=== PATIENT | female | born 1965 | race Caucasian/White ===

== ENCOUNTER 2022-03-26 19:36 | Emergency (ER) | payer OTHER ==
[~2022-03-26] VITALS: Ht 165.1 cm; Wt 65.8 kg
[2022-03-26 19:48] VITALS: BP_SYST 184
--- NOTE | 2022-03-26 19:59 | NUR ---
56 YR OLD SAMI SPEAKING FEMALE WITH COMPLAINT OF ABDOMINAL PAIN 8/10, WITH DYSPNEA AND WHEEZING. PT DENIES ANY NAUSE OR VOMITING, OR DIARRHEA. PT REPORTS TAKING A PAIN MEDICATION EARLIER WITH NO RELIEF. PT PLACED ON AQUEDUCT AND RESERVOIR KEEPER IN GOWN, BED 3. PT ACCOMPANIED BY FRIEND. REPORT GIVEN TO FRANCINE LUND. PENDING MD TRAN
--- NOTE | 2022-03-26 20:06 | NUR ---
PT PRESENTED TO THE ER DRIVEN BY HER ROOM MATE WITH COMPLAINT OF UPPER ABDOMINAL PAIN. STATED PAIN STARTED OF 4P. 06/01 DENIES ANY VOMITING OR NAUSEA. PT DOES HAVE AUDIBLE WHEEZING ON INHALE HAS HX OF ASTHMA. PB READING PROVIDED TO DR BECK. PT IN BED WITH BED LOWERED AND LOCKED AND RAILS UP
[2022-03-26] MEDS ORDERED: methylPREDNISolone SOD SUCC/PF 62.5 MG/ML VIAL IVP ONE (20:15)
[2022-03-26] MEDS ORDERED: fentaNYL CITRATE/PF 100 MCG/2 ML AMP IVP ONE (20:15)
[2022-03-26] MEDS ORDERED: IPRATROPIUM/ALBUTEROL SULFATE 3 ML AMPUL.NEB (DUONEB) INH ONE (20:15)
--- NOTE | 2022-03-26 20:16 | NUR ---
SUMITTED ORDERS FOR PT
[2022-03-26] MEDS ORDERED: cloNIDine HCL 0.1 MG TABLET PO ONE ×2 (21:00)
[2022-03-26 21:21] LABS: BASOPHILS # (AUTO) 0.1 K/uL (0.0-0.2); BASOPHILS % (AUTO) 0.9 % (0.0-2.0); EOSINOPHILS # (AUTO) 0.3 K/uL (0.0-0.4); EOSINOPHILS % (AUTO) 3.9 % (0.0-4.0); HEMATOCRIT 35.1 % (36-48); HEMOGLOBIN 11.3 g/dL (12.0-16.0); LYMPHOCYTES # (AUTO) 2.6 K/uL (1.0-5.5); LYMPHOCYTES % (AUTO) 39.5 % (20.5-51.5); MEAN CORPUSCULAR HEMOGLOBIN 24 pg (27-31); MEAN CORPUSCULAR HGB CONC 32 % (32-36); MEAN CORPUSCULAR VOLUME 73 fL (79.0-98.0); MONOCYTES # (AUTO) 0.5 K/uL (0.0-1.0); MONOCYTES % (AUTO) 7.3 % (1.7-9.3); NEUTROPHILS # (AUTO) 3.2 K/uL (1.8-7.7); NEUTROPHILS % (AUTO) 48.4 % (40.0-70.0); PLATELET COUNT (AUTO) 392 K/uL (130-430); RED BLOOD CELL COUNT(AUTO) 4.81 MIL/uL (4.2-6.2); RED CELL DISTRIBUTION WIDTH 15.9 % (9.0-15.0); WHITE BLOOD COUNT (AUTO) 6.6 K/uL (4.8-10.8)
[2022-03-26 21:44] LABS: BILIRUBIN,URINE NEGATIVE (NEGATIVE); BLOOD, URINE NEGATIVE (NEGATIVE); COLOR,URINE YELLOW (YELLOW); GLUCOSE,URINE NEGATIVE (NEGATIVE); KETONES,URINE NEGATIVE (NEGATIVE); LEUKOCYTE ESTERASE ,URINE 1+ (NEGATIVE); NITRITE, URINE NEGATIVE (NEGATIVE); PROTEIN URINE NEGATIVE (NEGATIVE); UROBILINOGEN,URINE 0.2 (0.2-1.0)
[2022-03-26 21:45] LABS: CLARITY/URINE HAZY (CLEAR)
[2022-03-26 21:53] LABS: ANION GAP 11 (5-15); CHLORIDE 103 mmol/L (98-107); CREATININE 0.92 mg/dL (0.55-1.30); GLUCOSE 86 mg/dL (70-99); SODIUM SERUM 139 mmol/L (136-145); UREA NITROGEN, BLOOD 17 mg/dL (8-21)
[2022-03-26 21:55] LABS: GFR AFRICAN AMERICAN 81 mL/min (>90)
[2022-03-26 22:02] LABS: ALANINE AMINOTRANSFERASE 20 U/L (12-78); ALBUMIN 3.3 g/dL (3.4-4.8); ASPARTATE AMINOTRANSFERASE 14 U/L (10-37); LIPASE 198 U/L (73-393); TOTAL BILIRUBIN 0.1 mg/dL (0.0-1.0)
[2022-03-26 23:17] LABS: BACTERIA,URINE MODERATE /HPF (None Seen); MUCUS,URINE 1+ /LPF (None Seen); RBC,URINE 0-3 /HPF (0-3)
[2022-03-27] MEDS ORDERED: PRED20TA PO (00:39)
[2022-03-27] MEDS ORDERED: FAMO-132 PO (00:39)
[2022-03-27] MEDS ORDERED: NITR-85 PO (00:39)
--- NOTE | 2022-03-27 00:52 | NUR ---
Patient given written and verbal discharge instructions and verbalizes understanding. ER DR VINAY WHITT discussed with patient the results and treatment provided. Patient in stable condition. ID arm band removed. IV catheter removed intact and dressing applied, no active bleeding. Rx of PREDNISONE, MACROBID, PEPCID given. Patient educated on pain management and to follow up with PMD. Pain Scale . Opportunity for questions provided and answered. Medication side effect fact sheet provided.
[2022-03-27 00:55] VITALS: BP_SYST 126
== END 2022-03-27 01:11 | disposition home or self-care (01) ==
LOC: SED 19:36
DX: J45.901 Unspecified asthma with (acute) exacerbation (principal); I10 Essential (primary) hypertension; R10.13 Epigastric pain
CPT/HCPCS: 36415; 71045; 76700; 80053; 81000; 83690; 84484; 85025; 87086; 93005; 94640; 96374; 96375; 99285; J2930; J3010

== ENCOUNTER 2022-08-27 21:10 | Emergency (ER) | payer MEDICAID, OTHER ==
[~2022-08-27] VITALS: Ht 165.1 cm; Wt 65.8 kg
[~2022-08-27 21:10] MED LIST: FAMO-132 PO; NITR-85 PO; PRED20TA PO
[2022-08-27 21:27] VITALS: BP_SYST 165
--- NOTE | 2022-08-27 21:31 | NUR ---
Pt bib ALS from board and halfway. CC HTN with general weakness. blurred vision Veronica noted no neuro deficets denies headache denies NV. Pt notes 208/100 at 1300 today. BP is currently 165/105. Pt states general weakness.
--- NOTE | 2022-08-27 21:32 | NUR ---
PT LUNG SOUNDS WHEEZING TIGHTNESS TO THE CHEST.
--- NOTE | 2022-08-27 22:11 | NUR ---
Pt sob, tightness in chest, dyspnea 97% oxygen RT, MD notified.
[2022-08-27] MEDS ORDERED: IPRATROPIUM/ALBUTEROL SULFATE 3 ML AMPUL.NEB (DUONEB) INH ONE ×2 (22:30→23:30)
[2022-08-27] MEDS ORDERED: PROCHLORPERAZINE EDISYLATE 10 MG/2 ML VIAL IVP ONE (22:30)
[2022-08-27] MEDS ORDERED: fentaNYL CITRATE/PF 100 MCG/2 ML AMP IVP ONE (22:30)
[2022-08-27] MEDS ORDERED: MAGNESIUM SULFATE 50 ML IV ONE (22:45)
[2022-08-27 22:56] LABS: BASOPHILS % (AUTO) 0.4 % (0.0-2.0); EOSINOPHILS # (AUTO) 0.3 K/uL (0.0-0.4); EOSINOPHILS % (AUTO) 5.3 % (0.0-4.0); HEMATOCRIT 38.7 % (36-48); HEMOGLOBIN 12.5 g/dL (12.0-16.0); LYMPHOCYTES # (AUTO) 2.1 K/uL (1.0-5.5); LYMPHOCYTES % (AUTO) 32.8 % (20.5-51.5); MEAN CORPUSCULAR HEMOGLOBIN 24 pg (27-31); MEAN CORPUSCULAR HGB CONC 32 % (32-36); MEAN CORPUSCULAR VOLUME 74 fL (79.0-98.0); MONOCYTES # (AUTO) 0.5 K/uL (0.0-1.0); MONOCYTES % (AUTO) 7.2 % (1.7-9.3); NEUTROPHILS # (AUTO) 3.4 K/uL (1.8-7.7); NEUTROPHILS % (AUTO) 54.3 % (40.0-70.0); PLATELET COUNT (AUTO) 316 K/uL (130-430); RED BLOOD CELL COUNT(AUTO) 5.24 MIL/uL (4.2-6.2); RED CELL DISTRIBUTION WIDTH 14.4 % (9.0-15.0); WHITE BLOOD COUNT (AUTO) 6.3 K/uL (4.8-10.8)
[2022-08-27 23:01] LABS: BILIRUBIN,URINE NEGATIVE (NEGATIVE); BLOOD, URINE NEGATIVE (NEGATIVE); CLARITY/URINE CLEAR (CLEAR); COLOR,URINE YELLOW (YELLOW); GLUCOSE,URINE NEGATIVE (NEGATIVE); KETONES,URINE NEGATIVE (NEGATIVE); LEUKOCYTE ESTERASE ,URINE 3+ (NEGATIVE); NITRITE, URINE NEGATIVE (NEGATIVE); PH,URINE 6.5 (5.0-8.0); PROTEIN URINE NEGATIVE (NEGATIVE); UROBILINOGEN,URINE 0.2 (0.2-1.0)
[2022-08-27] MEDS ORDERED: DEXAMETHASONE SOD PHOSPHATE 10 MG/ML VIAL IVP ONE (23:15)
[2022-08-27 23:16] LABS: ANION GAP 6 (5-15); CALCIUM 8.6 mg/dL (8.4-11.0); CHLORIDE 101 mmol/L (98-107); CREATININE 0.72 mg/dL (0.55-1.30); GLUCOSE 114 mg/dL (70-99); UREA NITROGEN, BLOOD 13 mg/dL (8-21)
[2022-08-27 23:21] LABS: BACTERIA,URINE FEW /HPF (None Seen)
[2022-08-27 23:22] LABS: MUCUS,URINE 1+ /LPF (None Seen)
[2022-08-27 23:23] LABS: ALANINE AMINOTRANSFERASE 31 U/L (12-78); ALBUMIN 3.7 g/dL (3.4-4.8); ASPARTATE AMINOTRANSFERASE 20 U/L (10-37); TOTAL BILIRUBIN 0.3 mg/dL (0.0-1.0)
--- NOTE | 2022-08-27 23:24 | NUR ---
PT WORKING TO BREATH ACCESSORY MUSCLES MODERATE RESP DISTRESS NOTIFIED MD. RT AT BEDSIDE./
[2022-08-27] MEDS ORDERED: IPRATROPIUM/ALBUTEROL SULFATE 3 ML AMPUL.NEB (DUONEB) ONE (23:31)
[2022-08-27 23:33] LABS: GFR AFRICAN AMERICAN 107 mL/min (>90)
--- NOTE | 2022-08-28 | NUR ---
ER at bedside examining patient.
[2022-08-28] MEDS ORDERED: hydrALAZINE HCL 20 MG/ML VIAL IVP ONE (00:45)
[2022-08-28] MEDS ORDERED: ALBMDI INH (01:16)
[2022-08-28] MEDS ORDERED: PRED20TA PO (01:16)
[2022-08-28 01:25] VITALS: BP_SYST 138
--- NOTE | 2022-08-28 01:26 | NUR ---
Patient given written and verbal discharge instructions and verbalizes understanding. ER MD discussed with patient the results and treatment provided. Patient in stable condition. ID arm band removed. IV catheter removed intact and dressing applied, no active bleeding. Rx of albuterol, prednisone given. Patient educated on pain management and to follow up with PMD. Pain Scale . Opportunity for questions provided and answered. Medication side effect fact sheet provided.
== END 2022-08-28 01:25 | disposition home or self-care (01) ==
LOC: SED 21:10
DX: J44.1 Chronic obstructive pulmonary disease with (acute) exacerbation (principal); I10 Essential (primary) hypertension; R42 Dizziness and giddiness; R06.02 Shortness of breath; F17.200 Nicotine dependence, unspecified, uncomplicated; Z79.899 Other long term (current) drug therapy
CPT/HCPCS: 99291; 96365; 96375 ×2; 80053; 81000; 83880; 85025; 87086; 84484; 36415; 71045; 94640; 94664; J1100; J3475; J0780; J3010; J0360

== ENCOUNTER 2022-08-28 16:04 | Inpatient (IN) | payer MEDICAID ==
[~2022-08-28] VITALS: Ht 165.1 cm; Wt 71.4 kg
[~2022-08-28 16:04] MED LIST changes: +ALBMDI INH
[2022-08-28 16:21] VITALS: BP_SYST 173
[2022-08-28] MEDS ORDERED: LISINOPRIL 10 MG TABLET (PRINIVIL) PO ONE (17:00)
[2022-08-28 17:25] LABS: BASOPHILS % (AUTO) 0.1 % (0.0-2.0); EOSINOPHILS % (AUTO) 0.1 % (0.0-4.0); HEMOGLOBIN 12.2 g/dL (12.0-16.0); LYMPHOCYTES % (AUTO) 14.2 % (20.5-51.5); MEAN CORPUSCULAR HEMOGLOBIN 24 pg (27-31); MEAN CORPUSCULAR HGB CONC 33 % (32-36); MEAN CORPUSCULAR VOLUME 73 fL (79.0-98.0); MONOCYTES # (AUTO) 0.5 K/uL (0.0-1.0); MONOCYTES % (AUTO) 7.4 % (1.7-9.3); NEUTROPHILS # (AUTO) 5.4 K/uL (1.8-7.7); NEUTROPHILS % (AUTO) 78.2 % (40.0-70.0); PLATELET COUNT (AUTO) 355 K/uL (130-430); RED BLOOD CELL COUNT(AUTO) 5.04 MIL/uL (4.2-6.2); WHITE BLOOD COUNT (AUTO) 6.9 K/uL (4.8-10.8)
[2022-08-28 17:26] LABS: CALCIUM 9.6 mg/dL (8.4-11.0); CREATININE 0.88 mg/dL (0.55-1.30)
[2022-08-28 17:35] LABS: ALBUMIN 3.7 g/dL (3.4-4.8); TOTAL BILIRUBIN 0.2 mg/dL (0.0-1.0)
[2022-08-28] MEDS ORDERED: NACL 0.9% 1,000 ML IV ONE (17:45)
[2022-08-28] MEDS ORDERED: MORPHINE 4 MG INJ. 4 MG/ML VIAL IVP PRN (17:45)
[2022-08-28] MEDS ORDERED: hydrALAZINE HCL 20 MG/ML VIAL IVP ONE (18:15)
[2022-08-28] MEDS ORDERED: hydrALAZINE HCL 20 MG/ML VIAL ONE (20:34)
[2022-08-28] MEDS ORDERED: prednisoLONE 15 MG/5 ML UDC PO ONE (21:00)
[2022-08-28] MEDS ORDERED: IPRATROPIUM/ALBUTEROL SULFATE 3 ML AMPUL.NEB (DUONEB) INH ONE (21:15)
[2022-08-28] MEDS ORDERED: MORPHINE 4 MG INJ. 4 MG/ML VIAL IVP ONE (23:30)
[2022-08-29] VITALS (9 sets, daily range): BP systolic 125–200
[2022-08-29] MEDS: TEMAZEPAM 7.5 MG CAPSULE PO PRN ×2 (02:30→20:00)
[2022-08-29] MEDS ORDERED: ONDANSETRON HCL 4 MG/2 ML VIAL IVP PRN (06:45)
[2022-08-29] MEDS ORDERED: ALBUTEROL MDI INHALATION 8 GM INH INH PRN (07:00)
[2022-08-29] MEDS: IPRATROPIUM/ALBUTEROL SULFATE 3 ML AMPUL.NEB (DUONEB) INH PRN ×2 (07:17→23:36)
[2022-08-29] MEDS ORDERED: ALBUTEROL SULFATE 0.083% 2.5 MG/3 ML VIAL.NEB INH PRN (07:30)
[2022-08-29] MEDS: NITROFURANTOIN MONOHYD/M-CRYST 100 MG CAPSULE (MacroBID) PO SCH ×2 (09:57→20:00)
[2022-08-29] MEDS: predniSONE 20 MG TABLET PO SCH (09:57)
[2022-08-29] MEDS: FAMOTIDINE 20 MG TABLET PO SCH ×2 (09:57→20:00)
[2022-08-29] MEDS: ACETAMINOPHEN 325 MG TABLET PO PRN ×2 (09:58→16:41)
[2022-08-29] MEDS ORDERED: lisinopriL 20 MG TABLET PO ONE (16:45)
[2022-08-29] MEDS: hydrALAZINE HCL 20 MG/ML VIAL IVP PRN ×2 (19:05→23:57)
[2022-08-30] MEDS: NITROFURANTOIN MONOHYD/M-CRYST 100 MG CAPSULE (MacroBID) PO SCH (08:25)
[2022-08-30] MEDS: FAMOTIDINE 20 MG TABLET PO SCH (08:25)
[2022-08-30] MEDS: predniSONE 20 MG TABLET PO SCH (08:27)
[2022-08-30] MEDS: ACETAMINOPHEN 325 MG TABLET PO PRN (08:30)
[2022-08-30] MEDS: hydrALAZINE HCL 20 MG/ML VIAL IVP PRN (08:32)
[2022-08-30] MEDS ORDERED: lisinopriL 20 MG TABLET PO SCH (09:00)
[2022-08-30 11:11] VITALS: BP_SYST 150
[2022-08-30] MEDS ORDERED: METOPROLOL SUCCINATE 50 MG TAB.SR.24H (TOPROL XL) PO ONE (11:45)
[2022-08-30] MEDS ORDERED: IBUPROFEN 600 MG TABLET PO PRN (13:30)
[2022-08-30] MEDS ORDERED: LISI20TA30 PO (13:43)
[2022-08-30] MEDS ORDERED: METO-542 PO (13:43)
[2022-08-30 14:00] VITALS: BP_SYST 156
[2022-08-31] MEDS ORDERED: METOPROLOL SUCCINATE 50 MG TAB.SR.24H (TOPROL XL) PO SCH (09:00)
== END 2022-08-30 14:28 | disposition home or self-care (01) | DRG 47 ==
LOC: SED 16:04 → UNDODISIN 17:40 → STU 17:40
PROVIDERS: ADMIT Internal Medicine; ATTEND Internal Medicine
DX: G45.8 Other transient cerebral ischemic attacks and related syndromes (principal); R65.10 Systemic inflammatory response syndrome (SIRS) of non-infectious origin without acute organ dysfunction; G45.0 Vertebro-basilar artery syndrome; H53.2 Diplopia; I10 Essential (primary) hypertension; J45.909 Unspecified asthma, uncomplicated; Z20.822 Contact with and (suspected) exposure to COVID-19; K21.9 Gastro-esophageal reflux disease without esophagitis
CPT/HCPCS: 36415; 70450-TC; 70551; 71045; 76376; 80053; 84484; 85025; 93005; 93306; 94640; 94760; 96374; 96375; 97116-GP; 97530-GP; 99291; G0378; J0360; J2270; J2405; J7512